=== PATIENT | male | born 1965 | race Caucasian/White ===

== ENCOUNTER 2019-03-09 19:44 | Emergency (ER) | payer OTHER ==
[~2019-03-09] VITALS: Ht 177.8 cm; Wt 90.1 kg
[2019-03-09] MEDS ORDERED: DOCUSATE 50 MG/5 ML, 10ML UDC ONE (20:19)
[2019-03-09] MEDS ORDERED: DOCUSATE 50 MG/5 ML ORAL SOL OT ONE (20:30)
--- NOTE | 2019-03-09 20:48 | NUR ---
TECH AT BEDSIDE FOR EAR IRRIGATION
--- NOTE | 2019-03-09 21:04 | NUR ---
IRRIGATION DONE WITH SUCCESS. PA HAS RECHECKED PT. AWAITING DC PAPERWORK.
[2019-03-09 21:19] VITALS: BP 134/74
== END 2019-03-09 21:21 | disposition home or self-care (01) ==
LOC: ED 20:00
DX: H61.22 Impacted cerumen, left ear (principal)
CPT/HCPCS: 69209; 99283